=== PATIENT | female | born 1960 | race Caucasian/White ===

== ENCOUNTER 2018-02-28 04:00 | Day surgery (SDC) | payer BC ==
[~2018-02-28] VITALS: Ht 170.2 cm; Wt 79.4 kg
[~2018-02-28 04:00] MED LIST: ACET-1966 PO; CALC-18 PO; FEXO1TAB63 PO; IBUP200C71 PO; L.AC1CAP6 PO; LUTE20TA PO; NO CURRENT MEDS; [UNRECOGNIZED DRUG - CODE] TOP
[2018-02-28] MEDS ORDERED: PROPOFOL EMUL(*) 10MG/ML 20 ML 40 ML ONE (06:27)
[2018-02-28 08:27] VITALS: BP 128/85
[2018-02-28] MEDS ORDERED: LIDOCAINE/SOD BICARB 8.4% SYR ID ONE (08:45)
[2018-02-28] MEDS ORDERED: NORMOSOL R SOLN(*) 1000 ML BAG 1,000 ML IV PRN (08:45)
[2018-02-28] MEDS ORDERED: LIDOCAINE/SOD BICARB 8.4% SYR ONE (09:55)
[2018-02-28] MEDS ORDERED: PROPOFOL EMUL(*) 10MG/ML 20 ML 20 ML ONE (10:35)
[2018-02-28 10:46] VITALS: BP 94/60
[2018-02-28 11:15] VITALS: BP 109/74
[2018-02-28 11:30] VITALS: BP 106/83
[2018-02-28 11:45] VITALS: BP 106/80
[2018-02-28 11:47] VITALS: BP 109/77
== END 2018-02-28 10:45 | disposition home or self-care (01) ==
LOC: OR 04:00
PROVIDERS: ATTEND Internal Medicine
DX: Z12.11 Encounter for screening for malignant neoplasm of colon (principal); Z86.010 Personal history of colon polyps
CPT/HCPCS: 00812; 45378; J2704

== ENCOUNTER → 2018-07-18 | Outpatient (CLI) | payer BC ==
[~2018-07-18] MED LIST changes: +IBUP-136 PO; -IBUP200C71 PO
--- NOTE | 2018-07-22 09:05 | RADIOLOGY IMAGING REPORT ---
FACILITY: [facility] [place] PATIENT NAME: ALEXANDRA MUÑOZ : [id number] MR: [id number] V: [id number] EXAM DATE: [id number] ORDERING PHYSICIAN: LYNDON NICKERSON TECHNOLOGIST: Jazmin Bess PROCEDURE:BILATERAL DIGITAL SCREENING MAMMOGRAM WITH CAD ASSISTED INTERPRETATION & 3D TOMOSYNTHESIS COMPARISON:Prior mammograms dated 07/17/17, 07/10/16, 07/06/15, 07/01/14, 06/30/13, 06/26/12 INDICATIONS:screening FINDINGS: Moderately dense fibroglandular tissue is seen throughout the breasts. The parenchymal pattern has remained stable allowing for difference in mammographic technique & patient positioning. There is no evidence of malignant appearing mass, malignant appearing calcification or other secondary sign of malignancy in either breast. DIAGNOSTIC CATEGORY 1--NEGATIVE. RECOMMENDATIONS: ROUTINE MAMMOGRAM AND CLINICAL EVALUATION. IMPRESSION: BIRADS 1: Negative. No significant abnormality is seen. Dictated by: Tatum Keita M.D. on 07/18/2018 at 15:02 Transcribed by: KASSANDRA on 07/21/2018 at 7:51 Approved by: Tatum Keita M.D. on 07/22/2018 at 9:04 [facility]
== END ==
LOC: MAMO 01:01
PROVIDERS: ATTEND Obstetrics & Gynecology
DX: Z12.31 Encounter for screening mammogram for malignant neoplasm of breast (principal)
CPT/HCPCS: 77063; 77067